=== PATIENT | female | born 1995 | race Two or more races ===

== ENCOUNTER 2019-10-18 10:13 | Inpatient (IN) | payer OTHER ==
[~2019-10-18] VITALS: Ht 165.1 cm; Wt 110.2 kg
[2019-10-25] MEDS ORDERED: PREPLUS CA-FE1 EACH PO (11:10)
[2019-10-25] MEDS ORDERED: SENOKOT-S TABL1 EACH PO (11:10)
[2019-10-25] MEDS ORDERED: IBUPROFEN400 MG PO (11:10)
== END 2019-10-25 14:43 | disposition home or self-care (01) | DRG 807 ==
LOC: LDR 10-21 12:58 → OB/GYN 10-23 13:11
PROVIDERS: ADMIT Obstetrics & Gynecology
PROC: 10E0XZZ Delivery of Products of Conception, External Approach (ICD-10-PCS; principal; 2019-10-21)
PROC: 0UQMXZZ Repair Vulva, External Approach (ICD-10-PCS; 2019-10-21)
PROC: 10907ZC Drainage of Amniotic Fluid, Therapeutic from Products of Conception, Via Natural or Artificial Opening (ICD-10-PCS; 2019-10-21)
PROC: 3E033VJ Introduction of Other Hormone into Peripheral Vein, Percutaneous Approach (ICD-10-PCS; 2019-10-21)
PROC: 4A1HXCZ Monitoring of Products of Conception, Cardiac Rate, External Approach (ICD-10-PCS; 2019-10-21)
DX: O71.82 Other specified trauma to perineum and vulva (principal); Z37.0 Single live birth; Z3A.39 39 weeks gestation of pregnancy